=== PATIENT | female | born 1995 | race Caucasian/White ===

== ENCOUNTER 2019-12-30 13:12 | Emergency (ER) | payer OTHER ==
[~2019-12-30] VITALS: Ht 157.5 cm; Wt 49.0 kg
[~2019-12-30 13:12] MED LIST: BACTRIM DS TAB1 EACH PO; BIRTH CONTROL PILL; METROGEL-VAGINA70 GM VG
[2019-12-30 13:58] LABS: ABSOLUTE BASOPHILS 0.1 thou/uL (0.0-0.2); ABSOLUTE LYMPHOCYTES 1.9 thou/uL (0.8-5.3); ABSOLUTE MONOCYTES 0.4 thou/uL (0.0-1.2); ABSOLUTE NEUTROPHILS 6.5 thou/uL (1.6-8.1); BASOPHILS 0.8 %; EOSINOPHILS 0.5 %; HEMATOCRIT 43.6 % (37.0-47.0); LYMPHOCYTES 21.6 %; MCH 30.3 pg (26.0-34.0); MCHC 34.4 g/dL (28.0-37.0); MCV 88.1 fL (80.0-100.0); MONOCYTES 4.1 %; MPV 7.3 fl. (7.2-11.1); NUCLEATED RBCS 0 /100WBC; PLATELET COUNT* 321 thou/uL (150-400); RBC 4.95 mil/uL (4.20-5.00); RDW-CV 12.8 % (10.5-14.5); WBC 8.9 thou/uL (4.0-11.0)
[2019-12-30 14:05] LABS: CALCIUM 9.3 mg/dL (8.5-10.1); CREATININE 0.9 mg/dL (0.6-1.3); POTASSIUM 3.8 mmol/L (3.5-5.1)
[2019-12-30 14:09] LABS: ALBUMIN 4.6 g/dL (3.4-5.0); TOTAL BILIRUBIN 0.4 mg/dL (<0.1-1.0); TOTAL PROTEIN 8.2 g/dL (6.4-8.2)
[2019-12-30 14:15] LABS: URINE BILIRUBIN NEGATIVE (Negative); URINE BLOOD NEGATIVE (Negative); URINE CLARITY CLEAR; URINE COLOR YELLOW; URINE GLUCOSE-RANDOM NEGATIVE (Negative); URINE KETONES NEGATIVE (Negative); URINE LEUKOCYTES-REFLEX NEGATIVE (Negative); URINE NITRITE-REFLEX NEGATIVE (Negative); URINE PROTEIN NEGATIVE (Negative); URINE SPECIFIC GRAVITY 1.025 (1.005-1.030); URINE UROBILINOGEN 0.2 E.U./dl (0.2-1.0)
[2019-12-30] MEDS ORDERED: NORCO 5-325 TA1 EAC2 PO (16:49)
[2019-12-30] MEDS ORDERED: NAPROSYN500 MG PO (16:49)
[2019-12-30] MEDS ORDERED: FLAGYL500 M1 PO (16:50)
[2019-12-30 16:59] VITALS: BP 120/65
== END 2019-12-30 17:00 | disposition home or self-care (01) ==
LOC: M.ERS 13:12
PROVIDERS: Physician Assistant
DX: N76.0 Acute vaginitis (principal); B96.89 Other specified bacterial agents as the cause of diseases classified elsewhere

== ENCOUNTER 2020-01-24 08:40 | Emergency (ER) | payer OTHER ==
[~2020-01-24] VITALS: Ht 157.5 cm; Wt 48.1 kg
[~2020-01-24 08:40] MED LIST changes: +FLAGYL500 M1 PO; +NAPROSYN500 MG PO; +NORCO 5-325 TA1 EAC2 PO
[2020-01-24 09:20] LABS: ABSOLUTE EOSINOPHILS 0.1 thou/uL (0.0-0.7); ABSOLUTE MONOCYTES 0.4 thou/uL (0.0-1.2); ABSOLUTE NEUTROPHILS 7.1 thou/uL (1.6-8.1); BASOPHILS 0.4 %; EOSINOPHILS 1.1 %; HEMATOCRIT 38.8 % (37.0-47.0); HEMOGLOBIN 13.2 gm/dL (12.0-15.0); MCH 30.2 pg (26.0-34.0); MCHC 34.2 g/dL (28.0-37.0); MCV 88.2 fL (80.0-100.0); MONOCYTES 4.2 %; MPV 7.1 fl. (7.2-11.1); NUCLEATED RBCS 0 /100WBC; PLATELET COUNT* 198 thou/uL (150-400); POLYS 82.3 %; RBC 4.39 mil/uL (4.20-5.00); RDW-CV 12.8 % (10.5-14.5); WBC 8.6 thou/uL (4.0-11.0)
[2020-01-24 09:28] LABS: MONOTEST (MONOSPOT)* NEGATIVE (Negative)
[2020-01-24 09:31] LABS: CALCIUM 8.4 mg/dL (8.5-10.1); CREATININE 0.8 mg/dL (0.6-1.3); POTASSIUM 3.6 mmol/L (3.5-5.1)
[2020-01-24 09:35] LABS: ALBUMIN 3.8 g/dL (3.4-5.0); TOTAL BILIRUBIN 0.4 mg/dL (<0.1-1.0)
[2020-01-24] MEDS ORDERED: ZOFRAN ODT4 MG DISSOLVE (10:00)
[2020-01-24] MEDS ORDERED: TESSALON PERLE100 M1 PO (10:00)
[2020-01-24] MEDS ORDERED: ZPAK PO (10:04)
[2020-01-24 10:20] VITALS: BP 121/69
--- NOTE | 2020-01-24 10:43 | EKG ---
[place] [address] ELECTROCARDIOGRAM REPORT Name: JEFF JOSEPH Room: [facility]#: [id number] Admission: 01/24/20 Attend Phys: Discharge: 01/24/20 Date of : [birth year] Date of Service: 01/24/20 0845 Report #: [id number] THIS REPORT FOR: //name// [facility] ED Test Date: 2020-01-24 Test Time: 08:45:40 Pat Name: JEFF JOSEPH Department: Room: Gender: [place]: ALFA : 1995 Requested By: Chava Montes Order Number: [id number] MD: Erick Garrison Measurements Intervals [place] Rate: 95 P: 43 CT: 116 QRS: 49 QRSD: 92 T: 37 QT: 334 QTc: 420 Interpretive Statements Sinus rhythm Borderline short CT interval RSR' in V1 or V2, right VCD or RVH Baseline wander in lead(s) II,III,aVF No previous ECG available for comparison Electronically Signed On 01-24-2020 10:43:26 CDT by Erick Garrison [email or web address] <ELECTRONICALLY SIGNED> By: Erick Garrsion MD, [facility] 01/24/20 1043 0845 0845 Erick Garrison MD, [facility] /EPI
== END 2020-01-24 10:20 | disposition home or self-care (01) ==
LOC: M.ERS 08:40
PROVIDERS: Emergency Medicine Emergency Medical Services
DX: J18.9 Pneumonia, unspecified organism (principal); Z20.828 Contact with and (suspected) exposure to other viral communicable diseases

== ENCOUNTER 2020-06-28 12:47 | Emergency (ER) | payer OTHER ==
[~2020-06-28] VITALS: Ht 157.5 cm; Wt 49.0 kg
[~2020-06-28 12:47] MED LIST changes: +TESSALON PERLE100 M1 PO; +ZOFRAN ODT4 MG DISSOLVE; +ZPAK PO
[2020-06-28] MEDS ORDERED: NAPROSYN500 MG PO (13:38)
[2020-06-28] MEDS ORDERED: HYDROCODON-ACE1 EAC7 PO (13:38)
[2020-06-28 14:02] VITALS: BP 123/70
== END 2020-06-28 14:04 | disposition home or self-care (01) ==
LOC: M.ERS 12:47
DX: S63.592A Other specified sprain of left wrist, initial encounter (principal); X50.9XXA Other and unspecified overexertion or strenuous movements or postures, initial encounter; Y93.89 Activity, other specified; Y92.89 Other specified places as the place of occurrence of the external cause; Y99.8 Other external cause status

== ENCOUNTER 2021-01-16 09:20 | Emergency (ER) | payer OTHER ==
[~2021-01-16] VITALS: Ht 157.5 cm; Wt 48.5 kg
[~2021-01-16 09:20] MED LIST changes: +HYDROCODON-ACE1 EAC7 PO
[2021-01-16 10:12] LABS: URINE BILIRUBIN NEGATIVE (Negative); URINE BLOOD NEGATIVE (Negative); URINE CLARITY CLEAR; URINE COLOR YELLOW; URINE GLUCOSE-RANDOM NEGATIVE (Negative); URINE KETONES NEGATIVE (Negative); URINE LEUKOCYTES-REFLEX NEGATIVE (Negative); URINE NITRITE-REFLEX NEGATIVE (Negative); URINE PROTEIN NEGATIVE (Negative); URINE SPECIFIC GRAVITY <= 1.005 (1.005-1.030); URINE UROBILINOGEN 0.2 E.U./dl (0.2-1.0)
[2021-01-16 10:54] LABS: ABSOLUTE LYMPHOCYTES 1.5 thou/uL (0.8-5.3); ABSOLUTE MONOCYTES 0.3 thou/uL (0.0-1.2); ABSOLUTE NEUTROPHILS 3.8 thou/uL (1.6-8.1); BASOPHILS 0.7 %; EOSINOPHILS 0.6 %; HEMATOCRIT 42.8 % (37.0-47.0); HEMOGLOBIN 14.6 gm/dL (12.0-15.0); LYMPHOCYTES 27.2 %; MCH 29.7 pg (26.0-34.0); MCV 87.5 fL (80.0-100.0); MONOCYTES 5.3 %; NUCLEATED RBCS 0 /100WBC; PLATELET COUNT* 237 thou/uL (150-400); POLYS 66.2 %; RDW-CV 13.4 % (10.5-14.5); WBC 5.7 thou/uL (4.0-11.0)
[2021-01-16 11:03] LABS: CALCIUM 9.5 mg/dL (8.5-10.1); CREATININE 0.8 mg/dL (0.6-1.3); POTASSIUM 4.3 mmol/L (3.5-5.1)
[2021-01-16 11:19] LABS: ALBUMIN 4.8 g/dL (3.4-5.0); TOTAL BILIRUBIN 0.6 mg/dL (<0.1-1.0); TOTAL PROTEIN 8.1 g/dL (6.4-8.2)
[2021-01-16 12:58] VITALS: BP 115/75
--- NOTE | 2021-01-16 13:04 | EKG ---
[place] [address] ELECTROCARDIOGRAM REPORT Name: JEFF JOSEPH Room: [facility]#: [id number] Admission: 01/16/21 Attend Phys: Discharge: 01/16/21 Date of : [birth year] Date of Service: 01/16/21 1144 Report #: [id number] THIS REPORT FOR: //name// [facility] ED Test Date: 2021-01-16 Test Time: 11:44:24 Pat Name: JEFF JOSEPH Department: Room: Gender: Squad Leader: : 1995 Requested By: Rafael Packer Order Number: [id number] MD: Erick Garrison Measurements Intervals [place] Rate: 62 P: 14 MI: 135 QRS: 43 QRSD: 95 T: 51 QT: 381 QTc: 387 Interpretive Statements Sinus arrhythmia RSR' in V1 or V2, right VCD or RVH Baseline wander in lead(s) II,III,aVF Compared to ECG 01/24/2020 08:45:40 no change Electronically Signed On 01-16-2021 13:04:15 CDT by Erick Garrison [email or web address] <ELECTRONICALLY SIGNED> By: Erick Garrison MD, [facility] 01/16/21 1304 1144 1144 Erick Garrison MD, [facility] /EPI
== END 2021-01-16 12:58 | disposition home or self-care (01) ==
LOC: M.ERS 09:20
PROVIDERS: Emergency Medicine Emergency Medical Services; Physician Assistant
DX: S80.11XA Contusion of right lower leg, initial encounter (principal); R55 Syncope and collapse; Z98.890 Other specified postprocedural states; Z91.040 Latex allergy status; X58.XXXA Exposure to other specified factors, initial encounter; Y93.89 Activity, other specified; Y92.89 Other specified places as the place of occurrence of the external cause; Y99.8 Other external cause status